=== PATIENT | female | born 1970 | race Asian ===

== ENCOUNTER 2017-11-09 10:39 | Emergency (ER) | payer OTHER ==
[2017-11-09 10:50] VITALS: BP 110/70
--- NOTE | 2017-11-09 12:10 | UC ---
Gillian Pride Emily, scribed for Feliciano العلي MD on 11/09/17 at 1150 . Respiratory Complaint HPI - HPI Summary HPI Summary: This patient is a 47 year old F presenting to urgent care with a chief complaint of productive cough that began 2 weeks ago. Symptoms aggravated by nothing. Symptoms alleviated by nothing. Patient reports fever, chills, rattling in lungs, and DEL UNA. Patient denies swelling in bilateral LE, ear ache, abd pain, and urinary symptoms. - History of Current Complaint Chief Complaint: UCRespiratory Stated Complaint: COUGH Time Seen by Provider: 11/09/17 11:23 Hx Obtained From: Patient Hx Last Menstrual Period: 10/26/17 ?: No Onset/Duration: Sudden Onset, Lasting Weeks, Still Present Timing: Constant Character: Cough: Productive, Sputum Description: - Yellow-brown Aggravating Factors: Nothing Alleviating Factors: Nothing Associated Signs And Symptoms: Positive: Chills - Allergies/Home Medications Allergies/Adverse Reactions: Allergies Allergy/AdvReac Type Severity Reaction Status Date / Time No Known Allergies Allergy Verified 11/09/17 10:40 Home Medications: Home Medications Multiple Vitamin [Multi Vitamin] 1 tab PO DAILY 11/09/17 [History Confirmed ] PMH/Surg Hx/FS Hx/Imm Hx Previously Healthy: No Cardiovascular History: Other Other Cardiovascular History: Negative DVT Cancer History: Lung Cancer - Surgical History Surgical History: Yes Surgery Procedure, Year, and Place: 2007 lung biopsy and upper left lobectomy, 2011 wedge resection lung, 2013 another wedge resection,pneumonectomy 11/2013 LT KNEE ACL repair 1991. VOCAL CORD INJECTION,WISDOM TEETH REMOVED, vocal cord implants 04/2015 - Family History Known Family History: Negative: Cardiac Disease, Diabetes - Social History Occupation: Employed Full-time Lives: With Family Alcohol Use: None Substance Use Type: None Smoking Status (MU): Never Smoked Tobacco - Immunization History Most Recent Tetanus Shot: unknown Review of Systems Constitutional: Fever, Chills ENT: Other - Negative ear ache Respiratory: Cough, Other - Positive "rattling in lungs" Gastrointestinal: Other - Negative abd pain Genitourinary: Negative Musculoskeletal: Other: - Negative edema Neurological: Headache All Other Systems Reviewed And Are Negative: Yes Physical Exam Triage Information Reviewed: Yes Vital Signs: Initial Vital Signs Temp 98.1 F 11/09/17 10:47 Pulse 96 11/09/17 10:47 Resp 16 11/09/17 10:47 BP 110/70 11/09/17 10:47 Pulse Ox 100 11/09/17 10:47 Vital Signs Reviewed: Yes - Additional Comments General: well-appearing, no pain distress Skin: warm, color reflects adequate perfusion, dry Head: normal Eyes: EOMI, ERICA ENT: clear rhinorrhea Neck: supple, nontender Respiratory: loose cough, decreased breath sounds left side, lung sounds on the right are clear Cardiovascular: RRR Abdomen: soft, nontender Bowel: present Musculoskeletal: normal, strength/ROM intact, no pedal edema and calves are not tender to palpation Neurological: normal, sensory/motor intact, A&O x3 Psychological: affect/mood appropriate UC Diagnostic Evaluation - Laboratory O2 Sat by Pulse Oximetry: 100 Respiratory Course/Dx - Course Course Of Treatment: Medications reviewed. RX ALBUTEROL TO HELP WITH SPUTUM EXPECTORATION. RX AMOX 1GM TID PLUS ZPAC PATIENT HAS ALREADY TAKEN A ZPAC 2 WEEKS AGO AND HAS ONLY ONE LUNG. F/U PMD; REEVAL IF WORSE. - Differential Dx/Diagnosis Provider Diagnoses: BRONCHITIS Discharge - Discharge Plan Condition: Stable Disposition: HOME Prescriptions: Albuterol HFA INHALER* [Ventolin HFA Inhaler*] 2 puff INH Q4H PRN #1 mdi PRN Reason: Dyspnea Amoxicillin PO (*) [Amoxicillin 500 MG CAP*] 1,000 mg PO TID #60 cap Azithromyxin JULES (NF) [Z-Jules (Zithromax) 250 mg tabs #6] 2 tab PO .TODAY, THEN 1 DAILY #6 tab Patient Education Materials: Acute Bronchitis (ED) Referrals: Lidia Vasquez MD [Primary Care Provider] - Additional Instructions: FOLLOW UP WITH YOUR DOCTOR. GET RECHECKED FOR ANY WORSENING OF YOUR CONDITION OR QUESTIONS OR CONCERNS. The documentation as recorded by the Gillian cadena Emily accurately reflects the service I personally performed and the decisions made by me, Feliciano العلي MD.
== END 2017-11-09 12:13 | disposition home or self-care (01) ==
LOC: UCEAST 10:39
DX: J40 Bronchitis, not specified as acute or chronic (principal); Z85.118 Personal history of other malignant neoplasm of bronchus and lung
CPT/HCPCS: 99212; G0463

== ENCOUNTER 2024-11-02 12:18 | Inpatient (IN) ==
[~2024-11-02 12:18] MED LIST: TARLATAMAB-DLLE 1 MG in NS 0.9% 250 ml 248.9 ML IVPB SCH
[2024-11-02] MEDS ORDERED: Dexamethasone IV 4 MG/ML VIAL 1 ml VIAL ONE (13:06)
[2024-11-02 13:09] LABS: Albumin 3.4 g/dL (3.5-5.7); Albumin/Globulin Ratio 0.8 (1-3); Calcium 10.2 mg/dL (8.6-10.3); Creatinine, Serum 1.2 mg/dL (0.51-0.95); Globulin 4.4 g/dL (2-4); Total Bilirubin 0.8 mg/dL (0.2-1.0); Total Protein 7.8 g/dL (6.4-8.9); eGFR CKD-EPI 54.5 (>60)
[2024-11-02 13:12] LABS: ABS Eosinophils 0.2 10^3/uL (0.0-0.5); ABS Lymphocytes 1.3 10^3/uL (1.0-4.8); ABS Monocytes 0.3 10^3/uL (0.0-0.9); ABS Neutrophils 2.6 10^3/uL (1.5-7.6); Eosinophil % 4.8 %; Hemoglobin 11.6 g/dL (11.5-14.3); Lymphocyte % 28.5 %; Mean Corpuscular Hemoglobin 32.5 pg (27-33); Mean Corpuscular Volume 95.6 fL (80-97); Mean Platelet Volume 8.1 fL (7.5-11.2); Platelet Count 117 10^3/uL (150-450); Red Blood Count 3.56 10^6/uL (3.63-4.92); Red Cell Distribution Width 14.2 % (12-17); White Blood Count 4.5 10^3/uL (3.8-11.8)
[2024-11-02] MEDS ORDERED: Tocilizumab 200 MG/10 ML 10 ml VIAL IVPB PRN (13:12)
[2024-11-02] MEDS: NS 0.9% 1000 ml BAG 1,000 ML IV SCH (19:19)
[2024-11-02] MEDS: Ondansetron ODT 4 mg TAB 4 MG TAB SL PRN (21:18)
[2024-11-02] MEDS: Dexamethasone IV 4 MG/ML VIAL 1 ml VIAL IV SLOW PU PRN (21:35)
[2024-11-03] MEDS: NS 0.9% IVPB PRN (03:06)
[2024-11-03] MEDS: TOCILIZUMAB IVPB PRN (03:06)
[2024-11-03 05:23] LABS: ABS Lymphocytes 0.1 10^3/uL (1.0-4.8); ABS Monocytes 0.7 10^3/uL (0.0-0.9); ABS Neutrophils 7.1 10^3/uL (1.5-7.6); Hematocrit 29.7 % (35-45); Hemoglobin 10.3 g/dL (11.5-14.3); Lymphocyte % 1.6 %; Mean Corpuscular Hemoglobin 33.5 pg (27-33); Mean Corpuscular Hgb Conc 34.8 g/dL (31-36); Mean Corpuscular Volume 96.4 fL (80-97); Mean Platelet Volume 8.2 fL (7.5-11.2); Platelet Count 104 10^3/uL (150-450); Red Blood Count 3.08 10^6/uL (3.63-4.92); Red Cell Distribution Width 14.7 % (12-17); White Blood Count 7.9 10^3/uL (3.8-11.8)
[2024-11-03 05:53] LABS: Albumin 3.5 g/dL (3.5-5.7); Albumin/Globulin Ratio 1.3 (1-3); Calcium 8.5 mg/dL (8.6-10.3); Creatinine, Serum 1.11 mg/dL (0.51-0.95); Globulin 2.6 g/dL (2-4); Magnesium 1.7 mg/dL (1.9-2.7); Total Bilirubin 0.7 mg/dL (0.2-1.0); Total Protein 6.1 g/dL (6.4-8.9); eGFR CKD-EPI 59.8 (>60)
[2024-11-03 13:59] LABS: ABS Lymphocytes 0.1 10^3/uL (1.0-4.8); ABS Monocytes 0.2 10^3/uL (0.0-0.9); ABS Neutrophils 6.7 10^3/uL (1.5-7.6); Eosinophil % 0.3 %; Hematocrit 32.9 % (35-45); Lymphocyte % 1.9 %; Mean Corpuscular Hemoglobin 32.5 pg (27-33); Mean Corpuscular Hgb Conc 33.6 g/dL (31-36); Mean Corpuscular Volume 96.7 fL (80-97); Mean Platelet Volume 8.3 fL (7.5-11.2); Platelet Count 112 10^3/uL (150-450); Red Cell Distribution Width 14.6 % (12-17)
[2024-11-03 14:22] LABS: Activated Partial Thrombo Time 28.1 seconds (26.0-38.0); INR 1.08 (0.85-1.14)
[2024-11-03 14:41] LABS: Albumin 3.7 g/dL (3.5-5.7); Albumin/Globulin Ratio 1.2 (1-3); C Reactive Protein 57.46 mg/L (<8.01); Calcium 8.9 mg/dL (8.6-10.3); Creatinine, Serum 1.13 mg/dL (0.51-0.95); Potassium 4.2 mmol/L (3.5-5.0); Total Bilirubin 0.6 mg/dL (0.2-1.0); Total Protein 6.7 g/dL (6.4-8.9); eGFR CKD-EPI 58.5 (>60)
[2024-11-03] MEDS ORDERED: Senna TAB 8.6 mg TAB PO PRN (18:03)
[2024-11-03] MEDS ORDERED: Calcium Carb (TUMS) 500 mg CHEW TAB PO PRN (18:03)
[2024-11-03] MEDS: Acetaminophen IV 1 GM/100ML 1,000 MG/100 ML BAG IV ONE (18:21)
[2024-11-03] MEDS: Dexamethasone IV 4 MG/ML VIAL 1 ml VIAL IV SLOW PU ONE (18:21)
[2024-11-03] MEDS: Ondansetron 4 mg VIAL 2 MG/ML 2 ml VIAL IV ONE (18:21)
[2024-11-04 09:42] VITALS: BP 113/79
[2024-11-04 13:54] LABS: ABS Eosinophils 0.3 10^3/uL (0.0-0.5); ABS Lymphocytes 0.3 10^3/uL (1.0-4.8); ABS Monocytes 0.4 10^3/uL (0.0-0.9); ABS Neutrophils 6.2 10^3/uL (1.5-7.6); Eosinophil % 4.3 %; Hemoglobin 11.3 g/dL (11.5-14.3); Lymphocyte % 4.2 %; Mean Corpuscular Hemoglobin 32.7 pg (27-33); Mean Corpuscular Hgb Conc 34.2 g/dL (31-36); Mean Corpuscular Volume 95.7 fL (80-97); Mean Platelet Volume 8.8 fL (7.5-11.2); Platelet Count 101 10^3/uL (150-450); Red Blood Count 3.45 10^6/uL (3.63-4.92); Red Cell Distribution Width 14.3 % (12-17); White Blood Count 7.2 10^3/uL (3.8-11.8)
[2024-11-04 14:13] LABS: Albumin 3.5 g/dL (3.5-5.7); Albumin/Globulin Ratio 1.3 (1-3); Calcium 8.7 mg/dL (8.6-10.3); Creatinine, Serum 1.07 mg/dL (0.51-0.95); Globulin 2.7 g/dL (2-4); Potassium 4.2 mmol/L (3.5-5.0); Total Bilirubin 0.4 mg/dL (0.2-1.0); Total Protein 6.2 g/dL (6.4-8.9); eGFR CKD-EPI 62.5 (>60)
== END 2024-11-04 13:37 | disposition home or self-care (01) | DRG 847 ==
LOC: CHOA 12:18 → MEDTELE 12:18
PROVIDERS: ADMIT Internal Medicine Hematology & Oncology; ATTEND Internal Medicine Hematology & Oncology

== ENCOUNTER 2024-11-09 08:13 | Observation (INO) ==
[~2024-11-09 08:13] MED LIST changes: +NS 0.9% IVPB SCH; -TARLATAMAB-DLLE 1 MG in NS 0.9% 250 ml 248.9 ML IVPB SCH; +[UNRECOGNIZED DRUG - OTHER] IVPB SCH
[2024-11-09 08:48] LABS: ABS Basophils 0.1 10^3/uL (0.0-0.1); ABS Eosinophils 0.4 10^3/uL (0.0-0.5); ABS Lymphocytes 2.1 10^3/uL (1.0-4.8); ABS Monocytes 0.5 10^3/uL (0.0-0.9); ABS Neutrophils 2.1 10^3/uL (1.5-7.6); Eosinophil % 6.9 %; Hematocrit 36.2 % (35-45); Hemoglobin 12.5 g/dL (11.5-14.3); Lymphocyte % 40.3 %; Mean Corpuscular Hemoglobin 32.7 pg (27-33); Mean Corpuscular Hgb Conc 34.6 g/dL (31-36); Mean Corpuscular Volume 94.5 fL (80-97); Mean Platelet Volume 8.5 fL (7.5-11.2); Platelet Count 153 10^3/uL (150-450); Red Blood Count 3.83 10^6/uL (3.63-4.92); Red Cell Distribution Width 14.9 % (12-17); White Blood Count 5.1 10^3/uL (3.8-11.8)
[2024-11-09 09:04] LABS: Albumin 3.6 g/dL (3.5-5.7); Albumin/Globulin Ratio 0.9 (1-3); Calcium 10.6 mg/dL (8.6-10.3); Potassium 4.5 mmol/L (3.5-5.0); Total Bilirubin 0.8 mg/dL (0.2-1.0); Total Protein 7.6 g/dL (6.4-8.9); eGFR CKD-EPI 67.8 (>60)
[2024-11-09] MEDS ORDERED: Tocilizumab 200 MG/10 ML 10 ml VIAL IVPB PRN (09:09)
[2024-11-09] MEDS ORDERED: Dexamethasone IV 4 MG/ML VIAL 1 ml VIAL ONE (09:29)
[2024-11-09] MEDS ORDERED: Dexamethasone IV 4 MG/ML VIAL 1 ml VIAL IV SLOW PU PRN (11:39)
[2024-11-09] MEDS ORDERED: TOCILIZUMAB IVPB PRN (14:29)
[2024-11-09] MEDS ORDERED: NS 0.9% IVPB PRN (14:29)
[2024-11-09] MEDS: NS 0.9% 1000 ml BAG 1,000 ML IV SCH (16:35)
[2024-11-10] MEDS: Ondansetron 4 mg VIAL 2 MG/ML 2 ml VIAL IV ONE (06:06)
[2024-11-10] MEDS: Acetaminophen IV 1 GM/100ML 1,000 MG/100 ML BAG IV PRN (06:09)
[2024-11-10 06:52] LABS: ABS Basophils 0.1 10^3/uL (0.0-0.1); ABS Eosinophils 0.1 10^3/uL (0.0-0.5); ABS Lymphocytes 0.8 10^3/uL (1.0-4.8); ABS Monocytes 0.5 10^3/uL (0.0-0.9); ABS Neutrophils 7.7 10^3/uL (1.5-7.6); Eosinophil % 0.7 %; Hematocrit 32.7 % (35-45); Hemoglobin 10.9 g/dL (11.5-14.3); Lymphocyte % 8.4 %; Mean Corpuscular Hemoglobin 31.8 pg (27-33); Mean Corpuscular Hgb Conc 33.4 g/dL (31-36); Mean Corpuscular Volume 95.3 fL (80-97); Mean Platelet Volume 7.6 fL (7.5-11.2); Platelet Count 160 10^3/uL (150-450); Red Blood Count 3.43 10^6/uL (3.63-4.92); Red Cell Distribution Width 14.4 % (12-17); White Blood Count 9.1 10^3/uL (3.8-11.8)
[2024-11-10 06:57] LABS: Albumin 3.7 g/dL (3.5-5.7); Albumin/Globulin Ratio 1.4 (1-3); Calcium 8.9 mg/dL (8.6-10.3); Creatinine, Serum 0.91 mg/dL (0.51-0.95); Globulin 2.7 g/dL (2-4); Magnesium 1.8 mg/dL (1.9-2.7); Potassium 4.1 mmol/L (3.5-5.0); Total Bilirubin 0.7 mg/dL (0.2-1.0); Total Protein 6.4 g/dL (6.4-8.9); eGFR CKD-EPI 75.9 (>60)
[2024-11-10] MEDS: Ondansetron 4 mg VIAL 2 MG/ML 2 ml VIAL IV PRN (11:41)
[2024-11-10] MEDS: Dexamethasone IV 4 MG/ML VIAL 1 ml VIAL IV SLOW PU PRN (13:52)
[2024-11-11 05:54] VITALS: BP 104/75
== END 2024-11-11 10:45 | disposition home or self-care (01) ==
LOC: MEDTELE 08:13 → CHOA 08:13
PROVIDERS: ADMIT Registered Nurse Oncology; ATTEND Internal Medicine Hematology & Oncology